=== PATIENT | female | born 2005 | race Caucasian/White ===

== ENCOUNTER 2025-06-02 20:11 | Emergency (ER) | payer OTHER ==
[2025-06-02] MEDS ORDERED: Lidocaine 1% (PF) 30 ML VIAL ONE (23:09)
[2025-06-03] MEDS ORDERED: Bacitracin 1 PK ONE (00:22)
== END 2025-06-03 00:45 | disposition home or self-care (01) ==
LOC: CSHERS 20:11
DX: S61.412A Laceration without foreign body of left hand, initial encounter (principal); S60.552A Superficial foreign body of left hand, initial encounter; W45.8XXA Other foreign body or object entering through skin, initial encounter
CPT/HCPCS: 99283